=== PATIENT | male | born 1980 | race Caucasian/White ===

== ENCOUNTER 2019-05-05 08:27 | Outpatient (CLI) | payer BC ==
--- NOTE | 2019-05-05 11:43 | MRI ---
MRA [place], noncontrast DATE: 05/05/2019 12:00 AM HISTORY: TIA COMPARISON: None FINDINGS: Right: ICA:No significant stenosis. MCA:No significant stenosis. ARIS:No significant stenosis. ANSWERING SERVICE TELEPHONE OPERATOR:No significant stenosis. LEFT: ICA:No significant stenosis. MCA:No significant stenosis. ARIS:No significant stenosis. ANSWERING SERVICE TELEPHONE OPERATOR:No significant stenosis. Vertebrobasilar System: Left Vertebral:No significant stenosis. Right Vertebral:No significant stenosis. Basilar:No significant stenosis. IMPRESSION: No hemodynamically significant stenosis, occlusion or aneurysmal dilation.
--- NOTE | 2019-05-05 11:57 | MRI ---
MRA of neck with without contrast DATE: 05/05/2019 12:00 AM HISTORY: Cerebral infarction COMPARISON: None FINDINGS: Right: CCA:No significant stenosis. ICA:No significant stenosis. LEFT: CCA:No significant stenosis. ICA:No significant stenosis. Vertebrobasilar System: Left Vertebral:No significant stenosis. Right Vertebral:No significant stenosis. Basilar:No significant stenosis. IMPRESSION: No hemodynamically significant stenosis, or occlusion.
== END 2019-05-05 08:28 | disposition home or self-care (01) ==
LOC: MRI 08:27
PROVIDERS: ATTEND Ophthalmology
DX: G45.9 Transient cerebral ischemic attack, unspecified (principal); I63.439 Cerebral infarction due to embolism of unspecified posterior cerebral artery
CPT/HCPCS: 70544; 70549

== ENCOUNTER 2025-01-23 13:47 | Emergency (ER) | payer BC ==
[2025-01-23] MEDS ORDERED: Ondansetron PF 4 MG/2 ML Vial ONE (14:48)
[2025-01-23 15:03] LABS: #Basophils 0.04 10x3/uL (0.0-0.2); #Eosinophils Less than 0.03 10x3/uL (0.0-0.7); #Monocytes 0.92 10x3/uL (0.11-0.59); #Neutrophils 12.50 10x3/uL (1.40-6.50); %Basophils 0.3 % (0.0-1.0); %Eosinophils 0.0 % (0.0-10.0); %Lymphocytes 5.8 % (21.0-51.0); %Monocytes 6.4 % (0.0-10.0); %Neutrophils 87.2 % (42.0-75.0); Hematocrit 45.5 % (42.0-52.0); Hemoglobin 16.0 g/dL (14.0-18.0); Mean Corpuscular Hemoglobin 28.8 pg (27.0-31.0); Mean Corpuscular Volume 81.8 fL (78.0-98.0); Platelet Count 275 10x3/uL (130-400); Red Blood Cell (RBC) Count 5.56 mill/uL (4.70-6.10); White Blood Cell (WBC) Count 14.34 10x3/uL (4.8-10.8)
[2025-01-23 15:28] LABS: ALT (SGPT) 19 U/L (Less than 45); AST (SGOT) 46 U/L (11-34); Albumin 5.2 g/dL (3.1-4.5); Alkaline Phosphatase 62 U/L (40-110); Anion Gap 20 mmol/L (10-20); BUN (Urea Nitrogen) 22 mg/dL (8.9-20.6); Bilirubin, Total 0.9 mg/dL (0.3-1.2); Calc. Creatinine Clearance 0 mL/min (70-130); Calcium 10.8 mg/dL (7.8-10.44); Carbon Dioxide 22 mmol/L (22-29); Chloride 102 mmol/L (98-107); Globulin 3.6 g/dL (2.4-3.5); Glucose 132 mg/dL (70-105); Potassium 4.1 mmol/L (3.5-5.1); Sodium 140 mmol/L (136-145)
[2025-01-23] MEDS ORDERED: Acetaminophen 500 MG TAB ONE (15:38)
[2025-01-23 15:45] LABS: CK (CPK) 1623 U/L (30-200)
[2025-01-23 17:15] LABS: Bacteria/HPF None Seen HPF (None Seen); CAUTI Indications for Culture Alt mental st,lethar; Glucose, Urine (Dipstick) 200 mg/dL (Negative); Leukocyte Negative Leu/uL (Negative); Protein, Urine (Dipstick) Negative (Neg-Trace); RBC/HPF 0-3 HPF (0-3); Specific Gravity, Urine 1.014 (1.002-1.036); WBC/HPF 0-3 HPF (0-3)
[2025-01-23 17:16] LABS: Urine Culture Reflex No No
[2025-01-23 17:56] LABS: Anion Gap 13 mmol/L (10-20); BUN (Urea Nitrogen) 17 mg/dL (8.9-20.6); CK (CPK) 1389 U/L (30-200); Calc. Creatinine Clearance 0 mL/min (70-130); Calcium 8.2 mg/dL (7.8-10.44); Carbon Dioxide 19 mmol/L (22-29); Chloride 105 mmol/L (98-107); Glucose 77 mg/dL (70-105); Potassium 4.2 mmol/L (3.5-5.1); Sodium 133 mmol/L (136-145)
== END 2025-01-23 18:05 | disposition home or self-care (01) ==
LOC: ERS 13:47
DX: T67.5XXA Heat exhaustion, unspecified, initial encounter (principal); M62.82 Rhabdomyolysis; N17.9 Acute kidney failure, unspecified; I10 Essential (primary) hypertension
CPT/HCPCS: 36415; 80053; 81001; 82550; 85025; 93005; 96361; 96374; 96375; 96376; J2060; J2270; J2405